=== PATIENT | male | born 1970 | race American Indian/Alaskan Native ===

== ENCOUNTER 2016-11-17 11:27 | Emergency (ER) | payer BC ==
[2016-11-17 11:28] VITALS: BMI 37.1
--- NOTE | 2016-11-17 12:31 | C.PDOC ---
History Of Present Illness Patient is a 46 y/o M with hx of diabetic neuropathy and varicose veins, presenting with L valencia discoloration. He reports that he wears compression stockings daily because of varicose veins. He reports that 3 weeks ago he hit his L valencia while working. He reports that the area has become darker in color and more numb (he reports baseline numbness in his feet secondary to diabetic neuropathy and takes gabapentin). He reports that he believes that the color change is probably his poor circulation, but wanted to be evaluated. Denies swelling or pain. Denies focal weakness. Time Seen by Provider: 11/17/16 12:00 Chief Complaint (Nursing): Lower Extremity Problem/Injury Past Medical History Vital Signs: Last Vital Signs Temp 98.1 F 11/17/16 15:26 Pulse 69 11/17/16 15:26 Resp 20 11/17/16 15:26 BP 137/83 11/17/16 15:26 Pulse Ox 100 11/17/16 15:26 - Medical History PMH: HTN Family History: States: Unknown Family Hx - Social History Hx Alcohol Use: No Hx Substance Use: No - Immunization History Hx Tetanus Toxoid Vaccination: No Hx Influenza Vaccination: No Hx Pneumococcal Vaccination: No Review Of Systems Except As Marked, All Systems Reviewed And Found Negative. Constitutional: Negative for: Fever, Chills Cardiovascular: Negative for: Chest Pain, Palpitations, Orthopnea, Edema, Light Headedness Respiratory: Negative for: Cough, Shortness of Breath, SOB with Excertion, Wheezing Gastrointestinal: Negative for: Nausea, Vomiting, Abdominal Pain, Diarrhea, Constipation Genitourinary: Negative for: Dysuria Musculoskeletal: Positive for: Other (valencia discoloration) Skin: Negative for: Rash Neurological: Negative for: Weakness, Numbness, Incoordination, Altered Mental Status, Headache Physical Exam - Physical Exam Appears: Well, Non-toxic, No Acute Distress Skin: Normal Color, Warm, Dry Head: Atraumatic, Normacephalic Eye(s): bilateral: Normal Inspection, PERRL, EOMI Neck: Supple Cardiovascular: Rhythm Regular Respiratory: Normal Breath Sounds, No Rales, No Rhonchi, No Wheezing Gastrointestinal/Abdominal: Soft, No Tenderness, No Mass, No Distention Back: Normal Inspection, No CVA Tenderness Extremity: Normal ROM, No Tenderness, No Pedal Edema, No Swelling, Other ( varicose veins to L leg. no discoloration noted. no warmth. +dorsalis pedis b/ l. Normal strength and ROM. ) Neurological/Psych: Oriented x3, Normal Speech, Normal Cranial Nerves, Normal Motor, Normal Sensation Gait: Steady ED Course And Treatment O2 Sat by Pulse Oximetry: 98 - Other Rad XR TIB/FIB X-Ray: Viewed By Me, Read By Radiologist Interpretation: Accession No. : [id number]. Patient Name / ID : UMESH YE / [id number]. Exam Date : 11/17/2016 12:13:53 ( Approved ). Study Comment : Sex / Age : M / 46Y. Creator : Zuhair Fung MD. Dictator : Zuhair Fung MD. Supervisor Carding : Safety Associate : Zuhair Fung MD. Approver2 : Report Date : 11/17/2016 13:18:41. My Comment : . Left tibia and fibula four views. History: Swelling and pain. Comparison: None available. Findings : Prominent reticulation and edema seen within the circumferential subcutaneous soft tissues. Prominent varicosities seen within the soft tissues. Mild medial compartment joint space narrowing of the femorotibial joint space. No evidence of acute displaced fracture dislocation. Prominent dorsal calcaneal spurring of the midfoot. Mild patellofemoral compartment joint space narrowing. Small suprapatellar joint effusion. Mild productive change at the anterior tibial tubercle. Impression: Prominent reticulation and edema seen within the circumferential subcutaneous soft tissues. Prominent varicosities seen within the soft tissues. Mild medial compartment joint space narrowing of the femorotibial joint space. No evidence of acute displaced fracture dislocation. Prominent dorsal calcaneal spurring of the midfoot. Mild patellofemoral compartment joint space narrowing. Small suprapatellar joint effusion. Mild productive change at the anterior tibial tubercle. If pain persists, consider MRI. Medical Decision Making Medical Decision Making: Xray shows :Prominent reticulation and edema seen within the circumferential subcutaneous soft tissues. Prominent varicosities seen within the soft tissues. Mild medial compartment joint space narrowing of the femorotibial joint space. No evidence of acute displaced fracture dislocation. Prominent dorsal calcaneal spurring of the midfoot. Mild patellofemoral compartment joint space narrowing. Small suprapatellar joint effusion. Mild productive change at the anterior tibial tubercle. If pain persists, consider MRI." Patient's study negative for dvt but shows severe valvular incompetence of L great saphenous vein. +varicose veins. He has no pain and is neurovasculary intact. He was made aware of findings and will follow-up with PMD Disposition - Disposition Disposition: HOME/ ROUTINE Disposition Time: 15:17 Condition: GOOD Additional Instructions: Follow-up with your PMD within 2 days. Return to ED if condition worsens. Continue to wear compression stockings Instructions: Varicose Veins (ED), Venous Insufficiency (GEN) - Clinical Impression Clinical Impression: Valvular incompetence, Varicose vein of leg
--- NOTE | 2016-11-17 13:20 | RAD ---
Left tibia and fibula four views History: Swelling and pain. Comparison: None available. Findings: Prominent reticulation and edema seen within the circumferential subcutaneous soft tissues. Prominent varicosities seen within the soft tissues. Mild medial compartment joint space narrowing of the femorotibial joint space. No evidence of acute displaced fracture dislocation. Prominent dorsal calcaneal spurring of the midfoot. Mild patellofemoral compartment joint space narrowing. Small suprapatellar joint effusion. Mild productive change at the anterior tibial tubercle. Impression: Prominent reticulation and edema seen within the circumferential subcutaneous soft tissues. Prominent varicosities seen within the soft tissues. Mild medial compartment joint space narrowing of the femorotibial joint space. No evidence of acute displaced fracture dislocation. Prominent dorsal calcaneal spurring of the midfoot. Mild patellofemoral compartment joint space narrowing. Small suprapatellar joint effusion. Mild productive change at the anterior tibial tubercle. If pain persists, consider MRI.
[2016-11-17 15:27] VITALS: BP 137/83; PULSE 69; RESP 20; TEMP 98.1
[2016-11-17 15:36] VITALS: O2SAT 98
--- NOTE | 2016-11-19 09:53 | VASCLAB ---
PROCEDURE: Left Lower Extremity Venous Duplex Exam. HISTORY: swelling, pain PRIORS: None. TECHNIQUE: Left common femoral, femoral, popliteal and posterior tibial, peroneal and great saphenous veins were evaluated. Flow was assessed with color Doppler, compressibility, assessment of phasic flow and augmentation response. Report prepared by DAVID Rdz Sql Database Programmer. FINDINGS: LEFT: 1. Common Femoral Vein: 1.1. Compressibility - Fully compressible: Thrombus - None : Flow - Phasic: Augmentation -Normal: Reflux - None. 2. Femoral Vein: 2.1. Compressibility - Fully compressible: Thrombus - None: Flow - Phasic: Augmentation -Normal: Reflux - None. 3. Popliteal Vein: 3.1. Compressibility - Fully compressible: Thrombus - None: Flow - Phasic: Augmentation -Normal: Reflux - None. 4. Posterior Tibial Vein: 4.1. Compressibility - Fully compressible: Thrombus - None: Flow - Phasic: Augmentation -Normal: Reflux - None. 5. Peroneal Vein: 5.1. Compressibility - Fully compressible: Thrombus - None: Flow - Phasic: Augmentation -Normal: Reflux - None. 6. Great Saphenous Vein: 6.1. Compressibility - Fully compressible: Thrombus - None: Flow - Phasic: Augmentation - Normal: Reflux - Severe. >4.10 seconds OTHER FINDINGS: IMPRESSION: No evidence of deep or superficial vein thrombosis of the left lower extremity with excellent venous flow. Severe valvular incompetence noted of the left great saphenous vein, at the thigh and calf levels. Normal venous flow noted in the right common femoral vein.
== END 2016-11-17 15:27 | disposition home or self-care (01) ==
LOC: C.ER 11:27
DX: I83.92 Asymptomatic varicose veins of left lower extremity (principal); I38 Endocarditis, valve unspecified; I10 Essential (primary) hypertension; E11.40 Type 2 diabetes mellitus with diabetic neuropathy, unspecified

== ENCOUNTER 2017-05-13 09:42 | Emergency (ER) | payer BC ==
[2017-05-13 09:43] VITALS: BMI 37.1
[2017-05-13 09:55] VITALS: RESP 18; TEMP 98
--- NOTE | 2017-05-13 10:06 | C.PDOC ---
History Of Present Illness 46yo male with history of HTN, diabetes, varicose veins in his left lower extremity, presents to the ED with complaints of left knee swelling and " popping sounds". Patient states he stand all the time and walks around a lot. He denies any injuries or trauma to his knee. He denies any headache, nausea, vomiting or chills. Patient has no other medical complaints. Time Seen by Provider: 05/13/17 09:57 Chief Complaint (Nursing): Lower Extremity Problem/Injury History Per: Patient History/Exam Limitations: no limitations Onset/Duration Of Symptoms: Days Current Symptoms Are (Timing): Still Present Additional History Per: Patient Past Medical History Reviewed: Historical Data, Nursing Documentation, Vital Signs Vital Signs: Last Vital Signs Temp 98 F 05/13/17 09:53 Pulse 78 05/13/17 09:53 Resp 18 05/13/17 09:53 BP 148/74 05/13/17 09:53 Pulse Ox 100 05/13/17 11:42 - Medical History PMH: HTN Surgical History: No Surg Hx Family History: States: Unknown Family Hx - Social History Hx Alcohol Use: No Hx Substance Use: No - Immunization History Hx Tetanus Toxoid Vaccination: No Hx Influenza Vaccination: No Hx Pneumococcal Vaccination: No Review Of Systems Except As Marked, All Systems Reviewed And Found Negative. Constitutional: Negative for: Fever, Chills Cardiovascular: Negative for: Chest Pain Respiratory: Negative for: Shortness of Breath Musculoskeletal: Positive for: Other (left knee swelling) Physical Exam - Physical Exam Appears: Non-toxic (mildly obese), No Acute Distress Skin: Normal Color, Warm, Dry Head: Normacephalic Eye(s): bilateral: Normal Inspection Neck: Normal ROM, Supple Chest: Symmetrical Cardiovascular: Rhythm Regular Respiratory: Normal Breath Sounds Extremity: Normal ROM, No Calf Tenderness, No Deformity, Swelling (swelling to left lateral knee, no knee swelling noted.), Other (varicose veins noted to left lower extremity) Neurological/Psych: Oriented x3 ED Course And Treatment O2 Sat by Pulse Oximetry: 100 (RA) Pulse Ox Interpretation: Normal Medical Decision Making Medical Decision Making: Impression: Left knee swelling Plan: -- XR left knee -- Tylenol 975 mg Po -- Motrin 600 mg PO -- US Doppler left lower extremity Time: 1141 XR left knee FINDINGS: BONES: Bone alignment and mineralization are normal. There is no acute displaced fracture or bone destruction JOINTS: There is mild tricompartmental degenerative osteoarthrosis with mild reduced joint spaces and tibial spiking, worse in the medial compartment. JOINT EFFUSION: There is a moderate suprapatellar joint effusion. OTHER FINDINGS: None. IMPRESSION: No acute fracture or dislocation. Mild tricompartmental degenerative osteoarthrosis, worse in the medial compartment. Moderate suprapatellar joint effusion. Disposition Counseled Patient/Family Regarding: Studies Performed, Diagnosis, Need For Followup, Rx Given - Disposition Referrals: Archana Garcia MD [Staff Provider] - Disposition: HOME/ ROUTINE Disposition Time: 11:42 Condition: STABLE Additional Instructions: Left venous doppler showed severe valvular incompetance to left GSV. Prescriptions: Ibuprofen [Motrin] 600 mg PO TID #15 tab Instructions: Osteoarthritis Forms: [facility] (Jordanian), General Discharge Instructions - POA Present On Arrival: None - Clinical Impression Clinical Impression: Arthritis, Varicose vein of leg, Valvular incompetence - Scribe Statement The provider has reviewed the documentation as recorded by the Scribe (Erika Radford) Provider Attestation: All medical record entries made by the Scribe were at my direction and personally dictated by me. I have reviewed the chart and agree that the record accurately reflects my personal performance of the history, physical exam, medical decision making, and the department course for this patient. I have also personally directed, reviewed, and agree with the discharge instructions and disposition.
--- NOTE | 2017-05-13 10:56 | RAD ---
PROCEDURE: Left Knee Radiographs. HISTORY: Pain. COMPARISON: None. FINDINGS: BONES: Bone alignment and mineralization are normal. There is no acute displaced fracture or bone destruction JOINTS: There is mild tricompartmental degenerative osteoarthrosis with mild reduced joint spaces and tibial spiking, worse in the medial compartment. JOINT EFFUSION: There is a moderate suprapatellar joint effusion. OTHER FINDINGS: None. IMPRESSION: No acute fracture or dislocation. Mild tricompartmental degenerative osteoarthrosis, worse in the medial compartment. Moderate suprapatellar joint effusion.
[2017-05-13 11:46] VITALS: BP 134/81; PULSE 86; O2SAT 98
--- NOTE | 2017-05-14 09:45 | VASCLAB ---
PROCEDURE: Left Lower Extremity Venous Duplex Exam. HISTORY: Pain in limb PRIORS: 11/17/2016, normal. TECHNIQUE: Left common femoral, femoral, popliteal and posterior tibial, peroneal and great saphenous veins were evaluated. Flow was assessed with color Doppler, compressibility, assessment of phasic flow and augmentation response. Report prepared by DAVID Rdz FINDINGS: LEFT: 1. Common Femoral Vein: 1.1. Compressibility - Fully compressible: Thrombus - None : Flow - Phasic: Augmentation -Normal: Reflux - None. 2. Femoral Vein: 2.1. Compressibility - Fully compressible: Thrombus - None: Flow - Phasic: Augmentation -Normal: Reflux - None. 3. Popliteal Vein: 3.1. Compressibility - Fully compressible: Thrombus - None: Flow - Phasic: Augmentation -Normal: Reflux - None. 4. Posterior Tibial Vein: 4.1. Compressibility - Fully compressible: Thrombus - None: Flow - Phasic: Augmentation -Normal: Reflux - None. 5. Peroneal Vein: 5.1. Compressibility - Fully compressible: Thrombus - None: Flow - Phasic: Augmentation -Normal: Reflux - None. 6. Great Saphenous Vein: 6.1. Compressibility - Fully compressible: Thrombus - None: Flow - Phasic: Augmentation - Normal: Reflux - Severe..4.00s OTHER FINDINGS: Normal venous flow noted in the right common femoral vein. IMPRESSION: 1. No evidence of deep or superficial vein thrombosis of the left lower extremity. 2. Severe valvular incompetence of the left great saphenous vein. 3. Multiple varicose veins in the left inner, proximal calf zone with severe reflux.
== END 2017-05-13 11:51 | disposition home or self-care (01) ==
LOC: C.ER 09:42
DX: M17.12 Unilateral primary osteoarthritis, left knee (principal); I83.92 Asymptomatic varicose veins of left lower extremity